=== PATIENT | male | born 1945 ===

== ENCOUNTER → 2024-12-13 | Outpatient (CLI) | payer MEDICARE ==
[2024-12-13 14:11] LABS: Creatinine Urine 79.2 mg/dL (27.00-270.00); Protein, Urine Quantitative 166.2 mg/dL (0.0-11.9)
== END ==
LOC: LAB SHORT 12:01 → LAB 12:01
PROVIDERS: Internal Medicine Nephrology
DX: N18.5 Chronic kidney disease, stage 5 (principal); E55.9 Vitamin D deficiency, unspecified; E29.1 Testicular hypofunction
CPT/HCPCS: 81050; 82043; 82570; 84156